=== PATIENT | female | born 1950 | race African-American/Black ===

== ENCOUNTER 2016-12-09 16:36 | Emergency (ER) | payer OTHER ==
[2016-12-09 16:54] VITALS: BP 139/88; PULSE 82; TEMP 98.1
--- NOTE | 2016-12-09 17:18 | PDOC ---
History of Present Illness - General Chief Complaint: Shortness of Breath Stated Complaint: ASTHMA/sob Time Seen by Provider: 12/09/16 17:12 History Source: Patient - History of Present Illness Initial Comments: 12/09/16 17:16 CC: 2 week h/o shortness of breath Patient is a 66 y.o. female with a PMH of Asthma who presents today c/o 2 week h /o shortness of breath both at rest and upon exertion; patient states she came to the ED today b/c she started experiencing pleuritic, stabbing chest pain. Patient notes she has been using a friend's Albuterol rescue inhaler daily and was previously using her son's Advair but has not been doing so for at least 1 month. Patient denies any nausea, vomiting, diaphoresis, abdominal pain but does note intermittent productive (greenish sputum) cough and sore throat for the last 3-4 days. Surgical: None Social: (-) nicotine, (-) alcohol, (-) marijuana/cocaine/heroin PMD: None NKDA Past History - Past Medical History Allergies/Adverse Reactions: Allergies Allergy/AdvReac Type Severity Reaction Status Date / Time No Known Allergies Allergy Verified 12/09/16 16:54 Home Medications: Ambulatory Orders Naproxen [Naprosyn -] 500 mg PO BID PRN #14 tablet 11/17/14 Asthma: Yes - Surgical History Cholecystectomy: Yes - Immunization History Immunization Up to Date: Yes - Suicide/Smoking/Psychosocial Hx Smoking History: Never smoked Information on smoking cessation initiated: No Hx Alcohol Use: No Drug/Substance Use Hx: No Substance Use Type: None Review of Systems - Review of Systems Constitutional: Yes: Chills. No: Fever Respiratory: Yes: Cough, SOB with Exertion, SOB at Rest Cardiac (ROS): Yes: Chest Pain ABD/GI: No: Constipated, Diarrhea, Nausea, Vomiting : No: Burning, Dysuria All Other Systems: Reviewed and Negative *Physical Exam - Vital Signs Last Vital Signs Temp Pulse Resp BP Pulse Ox 98.1 F 82 19 139/88 97 12/09/16 16:52 12/09/16 16:52 12/09/16 16:52 12/09/16 16:52 12/09/16 16:52 - Physical Exam General Appearance: Yes: Nourished, Thin HEENT: positive: Tonsillar Erythema, Nasal Congestion, Rhinorrhea Neck: positive: Trachea midline, Supple. 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 female with a PMH of Asthma who presents c/o dyspnea and associated Viral URI symptoms. PE is significant for B/L wheezing and rhonci on lung auscultation. Patient breathing comfortably (non-labored respirations, no accessory muscle use) with SpO2 96% on RA. Initial DDx includes Pneumonia vs. Asthma exacerbation vs. Influenza vs. Viral URI PLAN: 1. Duo-Nebs 2. CXR 3. 1 L IV NS 3. Influenza Nasal Swab 4. Referral to PCP and Pulmonology *DC/Admit/Observation/Transfer Diagnosis at time of Disposition: Dyspnea - Referrals Referrals: Horacio Can MD [Staff Physician] - Yoli Kilgore MD [Staff Physician] - - Patient Instructions Additional Instructions: Please call Dr. Kilgore to establish primary care. In addition please call Dr. Can to follow up for your treatment for your asthma and further evaluation. Please return to the Emergency Department should your symptoms worsen or you experience severe discomfort.
[2016-12-09] MEDS ORDERED: SODIUM CHLORIDE 0.9% 1000 ML INFUS.BAG IV ONE (17:49)
[2016-12-09] MEDS ORDERED: ALBUTEROL SO4 2.5/IPRATROPIUM 0.5 INH SOL 3 ML VIAL.NEB. NEB ONE ×4 (17:52→21:52)
--- NOTE | 2016-12-09 18:10 | PDOC ---
Attending Attestation - HPI HPI: 12/09/16 18:10 Pt is a 66 yo F with a PMHx of Asthma who presents to the ED with SOB for the past 2 weeks. Patient reports SOB at rest and on exertion that has progressively worsened. Patient reports chest pain that is exacerbated with deep inspiration. Patient does not have a doctor so she has been taking her son s Advair and Albuterol however denies any relief. Patient also reports productive cough (green) with sore throat. - Physicial Exam PE: 12/09/16 18:10 GENERAL: Awake, alert, and fully oriented, in no acute distress HEAD: No signs of trauma EYES: PERRLA, EOMI, sclera anicteric, conjunctiva clear ENT: Auricles normal inspection, hearing grossly normal, nares patent, oropharynx clear without exudates. Moist mucosa NECK: Normal ROM, supple, no lymphadenopathy, JVD, or masses LUNGS: Breath sounds equal. +wheezing diffusely. No crackles HEART: Regular rate and rhythm, normal S1 and S2, no murmurs, rubs or gallops ABDOMEN: Soft, nontender, normoactive bowel sounds. No guarding, no rebound. No masses EXTREMITIES: Normal range of motion, no edema. No clubbing or cyanosis. No cords, erythema, or tenderness NEUROLOGICAL: Cranial nerves II through XII grossly intact. Normal speech, normal gait SKIN: Warm, Dry, normal turgor, no rashes or lesions noted. - Medical Decision Making 12/09/16 18:11 Documentation prepared by Alem Song, acting as medical information specialist for Kaley Botello DO, MD/. <Alem Song - Last Filed: 12/09/16 18:10> - Resident Resident Name: MacJennifer - ED Attending Attestation I have performed the following: I have examined & evaluated the patient, The case was reviewed & discussed with the resident, I agree w/resident's findings & plan, Exceptions are as noted - Medical Decision Making 12/09/16 18:10 I, Dr. Kaley Botello DO, attest that this document has been prepared under my direction and personally reviewed by me in its entirety. I further attest, that it accurately reflects all work, treatment, procedures and medical decision -making performed by me. 12/09/16 18:33 a/p: 66yo female with SOB and chest tightness - using albuterol as oupt without relief -concern for PNA vs mucopurulent bronchitis w RAD vs viral RAD -labs -ekg -cxr -reassess -nebs <Kaley Botello - Last Filed: 12/09/16 18:36> Heart Score/ECG Review - ECG Intrepretation Comment:: 12/09/16 18:33 sinus at 74, R kaminski axis, nl interval, no acute st/t wave findings <Kaley Botello - Last Filed: 12/09/16 18:36>
[2016-12-09 18:25] LABS: BASOPHIL 1.1 % (0-2.0); EOSINOPHIL 13.4 % (0-4.5); MCH 29.4 pg (25.7-33.7); MCHC 33.2 g/dl (32.0-36.0); MEAN CELL VOLUME 88.6 fl (80-96); MEAN PLT VOLUME 9.5 fl (7.5-11.1); NEUTROPHILS 40.9 % (42.8-82.8); PLATELET COUNT 207 K/MM3 (134-434); RDW 13.5 % (11.6-15.6); WHITE BLOOD COUNT 5.2 K/mm3 (4.0-10.0)
[2016-12-09 18:53] LABS: ALBUMIN 4.1 g/dl (3.4-5.0); ANION GAP 6 (8-16); BILIRUBIN,TOTAL 0.5 mg/dL (0.2-1.0); CALCIUM 9.3 mg/dL (8.5-10.1); CO2 30 mmol/L (21-32); CREATININE 0.9 mg/dL (0.55-1.02); GLUCOSE,RANDOM 82 mg/dL (74-106); SGOT/AST 19 U/L (15-37); SGPT/ALT 21 U/L (12-78); TOT PROT 7.8 g/dl (6.4-8.2)
[2016-12-09 18:54] LABS: ALK PHOS 83 U/L (45-117)
[2016-12-09] MEDS ORDERED: methylPREDNISolone NA SUCC 125 MG/2 ML VIAL IVPB ONE (18:57)
[2016-12-09] MEDS ORDERED: AZITHROMYCIN IVPB 500 MG in DEXTROSE 5%-WATER - 250 ML IVPB ONE (19:08)
[2016-12-09] MEDS ORDERED: methylPREDNISolone NA SUCC 125 MG/2 ML VIAL ONE ×2 (19:44→19:45)
[2016-12-09] MEDS ORDERED: AZITHROMYCIN IVPB 250 ML IVPB ONE (19:44)
--- NOTE | 2016-12-09 20:09 | PDOC ---
*Physical Exam - Vital Signs Last Vital Signs Temp Pulse Resp BP Pulse Ox 98.1 F 82 19 139/88 97 12/09/16 16:52 12/09/16 16:52 12/09/16 16:52 12/09/16 16:52 12/09/16 16:52 - Physical Exam Comments: 12/09/16 20:19 GENERAL: Awake, alert, and fully oriented, in no acute distress HEAD: No signs of trauma, normocephalic, atraumatic EYES: PERRLA, EOMI, sclera anicteric, conjunctiva clear ENT: Auricles normal inspection, hearing grossly normal, nares patent, oropharynx clear without exudates. Moist mucosa NECK: Normal ROM, supple, no lymphadenopathy, JVD, or masses LUNGS: No distress, speaks full sentences, diffuse wheezes in all lung samuels HEART: Regular rate and rhythm, normal S1 and S2, no murmurs, rubs or gallops, peripheral pulses normal and equal bilaterally. NEUROLOGICAL: Cranial nerves II through XII grossly intact. Normal speech, normal gait, no focal sensorimotor deficits SKIN: Warm, Dry, normal turgor, no rashes or lesions noted. ED Treatment Course - LABORATORY CBC & Chemistry Diagram: 12/09/16 18:00 12/09/16 18:00 - ADDITIONAL ORDERS Additional order review: Laboratory Results 12/09/16 18:00 Sodium 138 Potassium 3.8 Chloride 102 Carbon Dioxide 30 Anion Gap 6 L BUN 9 Creatinine 0.9 Creat Clearance w eGFR > 60 Random Glucose 82 Calcium 9.3 Total Bilirubin 0.5 AST 19 ALT 21 Alkaline Phosphatase 83 Total Protein 7.8 Albumin 4.1 12/09/16 18:00 RBC 4.23 MCV 88.6 MCHC 33.2 RDW 13.5 MPV 9.5 Neutrophils % 40.9 L Lymphocytes % 37.3 Monocytes % 7.3 Eosinophils % 13.4 H Basophils % 1.1 - Medications Given in the ED: ED Medications Discontinued Medications Generic Name Dose Route Start Last Admin Trade Name Freq PRN Reason Stop Dose Admin Albuterol/Ipratropium 1 amp 12/09/16 17:52 12/09/16 18:27 Duoneb - NEB 12/09/16 17:53 1 amp ONCE ONE Administration Azithromycin 500 mg/ Dextrose 250 mls @ 250 mls/hr 12/09/16 19:08 12/09/16 19: 55 IVPB 12/09/16 20:07 250 mls/hr ONCE ONE Administration Methylprednisolone Sodium Succinate 125 mg 12/09/16 18:57 12/09/16 19:55 Solu-Medrol - IVPB 12/09/16 18:58 125 mg ONCE ONE Administration Sodium Chloride 1,000 ml 12/09/16 17:49 12/09/16 18:27 Normal Saline - IV 12/09/16 17:50 1,000 ml ONCE ONE Administration Medical Decision Making - Medical Decision Making 12/09/16 20:20 Patient 66F with history of asthma here today complaining of SOB. Vital signs stable. Patient appears well but is wheezing. CBC/CMP reassuring. Will treat with additional duoneb and mag. CXR pending. 12/09/16 20:54 CXR shows hyperinflation, no infiltrates. Will re-evaluate after mag. 12/09/16 21:34 Flu negative. Patient is improved. Will discharge with prescription for inhaler , steroid taper and z-pack. PCP referral set up for [facility]. Given return precautions. Discharged. *DC/Admit/Observation/Transfer Diagnosis at time of Disposition: Dyspnea - Discharge Dispostion Disposition: HOME Condition at time of disposition: Good Admit: No - Prescriptions Prescriptions: Methylprednisolone [Medrol Dose Pedro Pablo] 4 mg PO ASDIR #21 tablet Albuterol Sulfate Inhaler - [Ventolin Hfa Inhaler -] 1 - 2 inh PO QID #1 inhaler Azithromycin [Zithromax 250mg Tablets -] 250 mg PO UTDICT #6 tab - Referrals Referrals: Yoli Kilgore MD [Staff Physician] - Horacio Can MD [Staff Physician] - - Patient Instructions Printed Discharge Instructions: DI for Asthma -- Adult Additional Instructions: Please call Dr. Kilgore to establish primary care. In addition please call Dr. Can to follow up for your treatment for your asthma and further evaluation. Please return to the Emergency Department should your symptoms worsen or you experience severe discomfort. - Post Discharge Activity
[2016-12-09] MEDS ORDERED: MAGNESIUM SULF 50% (8.12 MEQ/2 ML-1 GM VIAL) IVPB ONE (20:16)
[2016-12-09] MEDS ORDERED: MAGNESIUM SULF 50% (8.12 MEQ/2 ML-1 GM VIAL) ONE (21:52)
[2016-12-09] MEDS ORDERED: ALBUTEROL SO4 2.5/IPRATROPIUM 0.5 INH SOL 3 ML VIAL.NEB. NEB SCH (22:00)
--- NOTE | 2016-12-16 12:02 | EKG ---
Test Reason : Blood Pressure : / mmHG Vent. Rate : 074 BPM Atrial Rate : 074 BPM P-R Int : 166 ms QRS Dur : 084 ms QT Int : 404 ms P-R-T Axes : 000 106 141 degrees QTc Int : 448 ms NORMAL SINUS RHYTHM RIGHTWARD AXIS BORDERLINE ECG NO PREVIOUS ECGS AVAILABLE Confirmed by NYDIA COHEN MD ([id number]) on 12/16/2016 12:01:41 PM Referred By: Confirmed By:NYDIA COHEN MD
== END 2016-12-09 22:21 | disposition home or self-care (01) ==
LOC: JER 16:36
PROC: 3E0337Z Introduction of Electrolytic and Water Balance Substance into Peripheral Vein, Percutaneous Approach (ICD-10-PCS; principal; 2016-12-09)
PROC: 3E0F7GC Introduction of Other Therapeutic Substance into Respiratory Tract, Via Natural or Artificial Opening (ICD-10-PCS; 2016-12-09)
PROC: 3E03329 Introduction of Other Anti-infective into Peripheral Vein, Percutaneous Approach (ICD-10-PCS; 2016-12-09)
PROC: 3E033GC Introduction of Other Therapeutic Substance into Peripheral Vein, Percutaneous Approach (ICD-10-PCS; 2016-12-09)
DX: R06.00 Dyspnea, unspecified (principal); J45.909 Unspecified asthma, uncomplicated
CPT/HCPCS: 36415; 71020-TC; 80053; 85025; 87804; 93005; 93010; 94640; 96365; 96375; 99283-25

== ENCOUNTER 2019-03-07 13:26 | Emergency (ER) | payer OTHER ==
[2019-03-07 13:33] VITALS: TEMP 97.9; BMI 20.7
--- NOTE | 2019-03-07 13:39 | PDOC ---
History of Present Illness - General Chief Complaint: Shortness of Breath Stated Complaint: ASTHMA / R.O PNEUMONIA Time Seen by Provider: 03/07/19 13:38 - History of Present Illness Initial Comments: HPI: 68yo F with PMH of asthma presenting with shortness of breath. Patient ROS: Constitutional: no fever, no chills HEENT: no throat pain, no dysphagia Cardiovascular: no chest pain, no palpitations Respiratory: no cough, no shortness of breath Gastrointestinal: no abdominal pain, no nausea, no vomiting, no diarrhea, no constipation Genitourinary: no dysuria, no hematuria Musculoskeletal: no myalgia, no arthralgia Skin: no rash, no itching Neurologic: no headache, no weakness PE: General: Awake, alert, and fully oriented, in no acute distress Head: No signs of trauma Eyes: EOMI, sclera anicteric ENT: Moist mucus membranes Neck: Normal ROM, supple Lungs: Lungs clear, Normal breath sounds Cardio: Regular rhythm, S1 and S2 present Abdomen: Soft, nontender. No guarding, no rebound, no masses Extremities: Normal range of motion, Distal pulses present SKIN: Warm, Dry, normal turgor Neurologic: Cranial nerves II through XII grossly intact. Normal speech ED Course/MDM: DDX including but not limited to DDX including but not limited to ACS, PE, PNA, anemia, metabolic derangement 03/07/19 13:39 EKG: rate 84, QTc 453, NSR feeling better after breathing treatments 03/07/19 16:44 03/07/19 18:58 03/07/19 19:00 Past History - Past Medical History Allergies/Adverse Reactions: Allergies Allergy/AdvReac Type Severity Reaction Status Date / Time No Known Allergies Allergy Verified 03/07/19 13:33 Home Medications: Ambulatory Orders Albuterol Sulfate Inhaler - [Ventolin Hfa Inhaler -] 1 - 2 inh PO QID #1 inhaler 12/09/16 Albuterol Sulfate Inhaler - [Ventolin Hfa Inhaler -] 1 - 2 inh PO Q4H #1 inhaler 03/07/19 Prednisone [Prednisone 50 MG TABLETS] 50 mg PO DAILY #4 tablet 03/07/19 Asthma: Yes COPD: No - Surgical History Cholecystectomy: Yes - Immunization History Immunization Up to Date: No - Psycho Social/Smoking Cessation Hx Smoking History: Never smoked Hx Alcohol Use: No Drug/Substance Use Hx: No Substance Use Type: None *Physical Exam - Vital Signs Last Vital Signs Temp Pulse Resp BP Pulse Ox 97.9 F 89 18 136/77 96 03/07/19 13:30 03/07/19 13:30 03/07/19 13:30 03/07/19 13:30 03/07/19 13:30 ED Treatment Course - LABORATORY CBC & Chemistry Diagram: 03/07/19 14:26 03/07/19 14:26 Discharge - Discharge Information Problems reviewed: Yes Clinical Impression/Diagnosis: Shortness of breath Condition: Stable Disposition: HOME - Additional Discharge Information Prescriptions: Albuterol Sulfate Inhaler - [Ventolin Hfa Inhaler -] 1 - 2 inh PO Q4H #1 inhaler Prednisone [Prednisone 50 MG TABLETS] 50 mg PO DAILY #4 tablet - Follow up/Referral Referrals: Yoli Kilgore MD [Primary Care Provider] - - Patient Discharge Instructions Patient Printed Discharge Instructions: DI for Asthma -- Adult Additional Instructions: You were seen in the emergency department for shortness of breath. We did blood work which did not indicate acute pathology. Your chest X-Ray did not show a pneumonia. You received steroids and breathing treatments which improved your symptoms. Follow-up with your primary care provider within 72 hours to discuss this ED visit and to further evaluate your symptoms. Call today or tomorrow morning and make an appointment. Your workup is not complete until you do so. We sent prescriptions to your pharmacy. Take as instructed. Continue taking home medications as prescribed. Call for emergency medical services or go to the emergency room right away if any of the following occurs: Difficulty breathing, unrelieved by medications Tightness in chest, unrelieved by medications If you think you have an emergency, call for medical help right away. - Post Discharge Activity
[2019-03-07] MEDS ORDERED: ALBUTEROL SO4 2.5/IPRATROPIUM 0.5 INH SOL 3 ML VIAL.NEB. NEB ONE ×3 (14:04→15:22)
[2019-03-07] MEDS ORDERED: methylPREDNISolone NA SUCC 125 MG/2 ML VIAL IVPUSH ONE (14:05)
[2019-03-07] MEDS ORDERED: predniSONE 20 MG TABLET (UD) ONE (14:10)
[2019-03-07] MEDS ORDERED: predniSONE 20 MG TABLET (UD) PO ONE (14:10)
--- NOTE | 2019-03-07 14:29 | PDOC ---
Documentation entered by Karly Grullon SCRIBE, acting as scribe for Jay Jay Lee MD. Jay Jay Lee MD: This documentation has been prepared by the Mitchel nieves Xhesika, SCRIBE, under my direction and personally reviewed by me in its entirety. I confirm that the documentation accurately reflects all work, treatment, procedures, and medical decision making performed by me. Attending Attestation - Resident Resident Name: LatoshaSusanTaya - ED Attending Attestation I have performed the following: I have examined & evaluated the patient, The case was reviewed & discussed with the resident, I agree w/resident's findings & plan, Exceptions are as noted - HPI HPI: 03/07/19 14:10 The patient is a 68 year old female with a PMH of asthma who presents to the ED for SOB and 1 month of productive cough with yellow/greenish sputum. Pt states her SOB is associated with chest and back tightness. Pt states she has a history of asthma, has been using her nebulizer and albuterol pump more frequently with mild to no relief of symptoms. Pt states her granddaughter had walking pneumonia recently. The patient denies headache and dizziness. Denies fever, chills, cough, nausea, vomiting, diarrhea and constipation. Denies dysuria, frequency, urgency and hematuria. Allergies:, NKDA Social Hx: Denies current smoking, drinking, or other substance usage - Physicial Exam PE: 03/07/19 14:11 Vitals: Triage Vital signs reviewed General Appearance: no acute distress, well nourished well developed, Chest Wall: Nontender Cardiac: Regular rate and rhythm, no murmurs, no rubs, no gallops, Lungs: +end expiratory wheezing. Abdomen: Soft, nondistended, normal bowel sounds, nontender to palpation Extremities: Full range of motion to all extremities, no cyanosis, clubbing, or edema Skin: Warm and dry, no rashes or lesions, no petechiae - Medical Decision Making 03/07/19 14:30 68 years old with past medical history significant for asthma presents to the ED with URI symptoms runny nose cough some sputum and wheezing not responding to home nebulizer treatments. On examination patient with end expiratory wheezing We will treat with steroids duo nebs chest x-ray labs observe and reassess 03/07/19 16:17 No fever no white count chest x-ray with no acute pathology history and examination consistent with asthma exacerbation secondary to viral URI Status post prednisone and duo nebs patient feels much better wheezing is improved We will discharge home with 4-day course of prednisone and refill of patient's Ventolin MDI Findings, the need for follow-up and strict return instructions discussed with patient. Discharge - Discharge Information Problems reviewed: Yes Clinical Impression/Diagnosis: Shortness of breath Condition: Stable Disposition: HOME - Additional Discharge Information Prescriptions: Prednisone [Prednisone 50 MG TABLETS] 50 mg PO DAILY #4 tablet - Follow up/Referral - Patient Discharge Instructions Patient Printed Discharge Instructions: DI for Asthma -- Adult Additional Instructions: You were seen in the emergency department for shortness of breath. We did blood work which did not indicate acute pathology. Your chest X-Ray did not show a pneumonia. You received steroids and breathing treatments which improved your symptoms. Follow-up with your primary care provider within 72 hours to discuss this ED visit and to further evaluate your symptoms. Call today or tomorrow morning and make an appointment. Your workup is not complete until you do so. We sent prescriptions to your pharmacy. Take as instructed. Continue taking home medications as prescribed. Call for emergency medical services or go to the emergency room right away if any of the following occurs: Difficulty breathing, unrelieved by medications Tightness in chest, unrelieved by medications If you think you have an emergency, call for medical help right away. - Post Discharge Activity Heart Score/ECG Review - ECG Impressions Comment:: 03/07/19 14:31 EKG performed at 1342 demonstrates normal sinus rhythm no ST elevations no T wave inversions Interpreted by me.
[2019-03-07 14:39] LABS: BASO % 1.4 % (0-2.0); EOS % 15.3 % (0-4.5); HEMATOCRIT 36.6 % (32.4-45.2); HEMOGLOBIN 12.2 GM/dL (10.7-15.3); LYMPH % 21.5 % (8-40); MCH 29.5 pg (25.7-33.7); MCHC 33.3 g/dl (32.0-36.0); MEAN CELL VOLUME 88.6 fl (80-96); MEAN PLT VOLUME 8.7 fl (7.5-11.1); MONO % 10.3 % (3.8-10.2); NEUT % 51.5 % (42.8-82.8); PLATELET COUNT 189 K/MM3 (134-434); RBC 4.13 M/mm3 (3.60-5.2); RDW 13.5 % (11.6-15.6); WHITE BLOOD COUNT 4.6 K/mm3 (4.0-10.0)
[2019-03-07 15:07] LABS: BILIRUBIN,TOTAL 0.2 mg/dL (0.2-1); BLOOD UREA NITROGEN 14.2 mg/dL (7-18); CALCIUM 9.1 mg/dL (8.5-10.1); CREATININE 0.9 mg/dL (0.55-1.3); POTASSIUM 3.9 mmol/L (3.5-5.1); TOT PROT 7.4 g/dl (6.4-8.2)
[2019-03-07] MEDS ORDERED: IBUPROFEN 600 MG TABLET (FP) PO ONE ×2 (15:22→15:47)
[2019-03-07 16:49] VITALS: BP 138/87; PULSE 84
--- NOTE | 2019-03-08 11:52 | EKG ---
Test Reason : Blood Pressure : / mmHG Vent. Rate : 084 BPM Atrial Rate : 084 BPM P-R Int : 174 ms QRS Dur : 086 ms QT Int : 384 ms P-R-T Axes : -03 073 007 degrees QTc Int : 453 ms NORMAL SINUS RHYTHM NONSPECIFIC ST AND T WAVE ABNORMALITY ABNORMAL ECG WHEN COMPARED WITH ECG OF 09-DEC-2016 17:08, QRS AXIS SHIFTED LEFT T WAVE INVERSION NOW EVIDENT IN ANTERIOR LEADS T WAVE INVERSION NO LONGER EVIDENT IN LATERAL LEADS Confirmed by NYDIA COHEN MD ([id number]) on 03/08/2019 11:51:37 AM Referred By: Confirmed By:NYDIA COHEN MD
== END 2019-03-07 16:49 | disposition home or self-care (01) ==
LOC: JER 13:26
PROC: 3E0F7GC Introduction of Other Therapeutic Substance into Respiratory Tract, Via Natural or Artificial Opening (ICD-10-PCS; principal; 2019-03-07)
DX: R06.02 Shortness of breath (principal); J45.909 Unspecified asthma, uncomplicated
CPT/HCPCS: 36415; 71046-TC-FY; 80053; 84484; 85025; 93005; 93010; 99283-25

== ENCOUNTER 2019-09-29 13:32 | Emergency (ER) | payer OTHER ==
--- NOTE | 2019-09-29 13:45 | PDOC ---
Rapid Medical Evaluation Time Seen by Provider: 09/29/19 13:38 Medical Evaluation: Allergies Allergy/AdvReac Type Severity Reaction Status Date / Time No Known Allergies Allergy Verified 03/07/19 13:33 09/29/19 13:42 I performed a brief in-person evaluation of this patient. Pt is a 68 y/o female who dropped a planter on her L foot/ankle a few days ago and now has worsening swelling. She admits to the swelling going up her leg now. She denies significant pain with walking. Pertinent physical exam findings: L ankle swelling with medial tenderness, DP pulse palpable, sensation intact distally I have ordered the following: L foot/ankle xray Patient to proceed to ED for further evaluation. Discharge Disposition - Diagnosis Left ankle injury - Referrals - Patient Instructions - Post Discharge Activity
[2019-09-29 13:47] VITALS: BP 127/63; PULSE 82; TEMP 98.2; BMI 18.8
--- NOTE | 2019-09-29 14:20 | PDOC ---
History of Present Illness - General Chief Complaint: Injury Stated Complaint: LT ANKLE INJURY Time Seen by Provider: 09/29/19 13:38 History Source: Patient Exam Limitations: No Limitations - History of Present Illness Initial Comments: 09/29/19 14:16 5-year-old female presents to ED with injury to her left ankle and foot. Patient states was moving a planter when it slipped landing on the medial aspect of her foot and ankle. Patient denies previous injury to affected area but states recently was diagnosed with COVID and shingles which have both resolved. Occurred: reports: other (5 days ago) Severity: reports: mild Pain Location: reports: lower extremity Method of Injury: Yes: direct blow Modifying Factors: improves with: None Loss of Consciousness: no loss of consciousness Associated Symptoms (Fall): other Past History - Travel History Traveled outside of the country in the last 30 days: No - Medical History Allergies/Adverse Reactions: Allergies Allergy/AdvReac Type Severity Reaction Status Date / Time No Known Allergies Allergy Verified 09/29/19 13:44 Home Medications: Ambulatory Orders Albuterol Sulfate Inhaler - [Ventolin Hfa Inhaler -] 1 - 2 inh PO QID #1 inhaler 12/09/16 Albuterol Sulfate Inhaler - [Ventolin Hfa Inhaler -] 1 - 2 inh PO Q4H #1 inhaler 03/07/19 Prednisone [Prednisone 50 MG TABLETS] 50 mg PO DAILY #4 tablet 03/07/19 Asthma: Yes COPD: No Other medical history: shingles, covid 19 08/2019, pneumomia - Surgical History Cholecystectomy: Yes - Immunization History Immunization Up to Date: No - Psycho-Social/Smoking History Smoking History: Never smoked - Substance Abuse Hx (Audit-C & DAST Scrn) How often the patient has a drink containing alcohol: Never Score: In Men: 4 or > Positive; In Women: 3 or > Positive: 0 Screen Result (Pos requires Nsg. Audit-10AR): Negative In the last yr the pt used illegal drug/Rx for NonMed reason: No Score: Yes response is considered Positive: 0 Screen Result (Positive result requires Nsg. DAST-10): Negative Review of Systems - Review of Systems Able to Perform ROS?: No Is the patient limited Italian proficient: No Constitutional: No: Symptoms Reported HEENTM: No: Symptoms Reported Respiratory: No: Symptoms reported Cardiac (ROS): No: Symptoms Reported ABD/GI: No: Symptoms Reported : No: Symptoms Reported Musculoskeletal: Yes: Symptoms Reported, Joint Pain Integumentary: Yes: Bruising, Other Neurological: No: Symptoms reported Hematologic/Lymphatic: No: Symptoms Reported *Physical Exam - Vital Signs Last Vital Signs Temp Pulse Resp BP Pulse Ox 98.2 F 82 16 127/63 96 09/29/19 13:44 09/29/19 13:44 09/29/19 13:44 09/29/19 13:44 09/29/19 13:44 - Physical Exam General Appearance: Yes: Nourished, Appropriately Dressed. No: Apparent Distress Vascular Pulses: Doralis-Pedis (L): 1+ Extremity: positive: Normal Capillary Refill, Normal Range of Motion, Tender (Over fifth metatarsal and medial aspect of left malleolus). negative: Normal Inspection Integumentary: positive: Bruising (Generally over left malleolus) Neurologic: positive: Motor Strength 5/5 (Ambulatory. Full range of motion 5 out of 5 of the left ankle ) Medical Decision Making - Medical Decision Making 09/29/19 14:21 Chief complaint: Left foot and ankle injury sustained on Tuesday after ifting a heavy item that fell on her foot and ankle. Exam: Patient with diffuse edema and ecchymosis to the medial aspect of left malleolus and fifth metatarsal. No crepitus no deformity no decreased range of motion full-strength noted Plan: X-ray ordered from [facility] which I have reviewed and found no acute fracture or dislocation. Biju wrap ordered referral to orthopedist if symptoms continue for 7 days or more Discharge - Discharge Information Problems reviewed: Yes Clinical Impression/Diagnosis: Left ankle injury Condition: Good Disposition: HOME - Follow up/Referral Referrals: Steve Crook MD [Staff Physician] - - Patient Discharge Instructions Patient Printed Discharge Instructions: DI for Ankle Sprain, DI for Contusion Additional Instructions: Please use Biju wrap during the day but remove at night to allow some movement. May take Motrin for discomfort Elevate the extremity and if symptoms continue and do not improve over the next week please consider follow-up with orthopedist - Post Discharge Activity
== END 2019-09-29 14:26 | disposition home or self-care (01) ==
LOC: JERFT 13:32
DX: S99.912A Unspecified injury of left ankle, initial encounter (principal)
CPT/HCPCS: 73610-TC-LT-FY; 73630-TC-LT; 99283-25

== ENCOUNTER 2020-08-27 23:56 | Observation (INO) | payer OTHER ==
[2020-08-28] MEDS ORDERED: ACETAMINOPHEN 1000 MG/100 ML VIAL (NON FORMULARY) IVPB ONE (01:16)
[2020-08-28] MEDS ORDERED: methylPREDNISolone NA SUCC 125 MG/2 ML VIAL IVPUSH ONE (01:16)
[2020-08-28] MEDS ORDERED: FAMOTIDINE 20 MG/50 ML IVPB 20 MG/50 ML MG IVPB ONE ×2 (01:16→01:38)
[2020-08-28 01:36] LABS: BASO % 0.8 % (0-2.0); EOS % 5.6 % (0-4.5); HEMOGLOBIN 11.7 GM/dL (10.7-15.3); LYMPH % 30.8 % (8-40); MCH 28.9 pg (25.7-33.7); MCHC 33.4 g/dl (32.0-36.0); MEAN CELL VOLUME 86.6 fl (80-96); MEAN PLT VOLUME 8.8 fl (7.5-11.1); NEUT % 54.8 % (42.8-82.8); PLATELET COUNT 197 10^3/uL (134-434); RBC 4.04 M/mm3 (3.60-5.2); RDW 13.9 % (11.6-15.6); WHITE BLOOD COUNT 7.7 K/mm3 (4.0-10.0)
[2020-08-28] MEDS ORDERED: methylPREDNISolone NA SUCC 125 MG/2 ML VIAL ONE (01:37)
[2020-08-28 01:49] VITALS: BMI 25.5
[2020-08-28 01:55] LABS: CHLORIDE 103 mmol/L (98-107); SODIUM 139 mmol/L (136-145)
[2020-08-28 01:57] LABS: ALBUMIN 4.2 g/dl (3.4-5.0); ANION GAP 6 MMOL/L (8-16); BLOOD UREA NITROGEN 18.4 mg/dL (7-18); CALCIUM 9.2 mg/dL (8.5-10.1); CO2 29 mmol/L (21-32)
[2020-08-28] MEDS ORDERED: ACETAMINOPHEN INJECTION 100 ML IVPB ONE (01:59)
[2020-08-28 02:00] LABS: CREATININE 1.1 mg/dL (0.55-1.3); SGOT/AST 26 U/L (15-37); SGPT/ALT 22 U/L (13-61)
[2020-08-28 02:02] LABS: BILIRUBIN,TOTAL 0.8 mg/dL (0.2-1); TOT PROT 7.6 g/dl (6.4-8.2)
[2020-08-28 02:03] LABS: ALK PHOS 84 U/L (45-117)
[2020-08-28] MEDS ORDERED: ALBUTEROL SO4 HFA INHALER IH PRN (02:40)
[2020-08-28 02:56] LABS: GLUCOSE,RANDOM 113 mg/dL (74-106)
[2020-08-28 06:00] LABS: PLATELET ESTIMATE NORMAL
[2020-08-28] MEDS ORDERED: ALBUTEROL SO4 2.5/IPRATROPIUM 0.5 INH SOL 3 ML VIAL.NEB. NEB PRN (06:03)
[2020-08-28] MEDS ORDERED: SODIUM CHLORIDE 1,000 ML IV SCH (06:15)
[2020-08-28] MEDS ORDERED: methylPREDNISolone NA SUCC 40 MG/1 ML VIAL ONE (08:51)
[2020-08-28 09:53] LABS: CHOLESTEROL 268 mg/dL (50-200); LDL CHOLESTEROL (ONLY SJRH) 132 mg/dL (5-100); TRIGLYCERIDES 39 mg/dL (0-150)
[2020-08-28 09:55] LABS: HDL CHOLESTEROL 107 mg/dL (40-60)
[2020-08-28] MEDS ORDERED: methylPREDNISolone NA SUCC 40 MG/1 ML VIAL IVPUSH SCH (10:00)
[2020-08-28 15:26] VITALS: BP 137/64; PULSE 76; TEMP 98
[2020-08-28] MEDS ORDERED: MONTELUKAST NA 10 MG TABLET PO SCH (22:00)
[2020-08-28] MEDS ORDERED: ATORVASTATIN CA 20 MG TABLET (FP) PO SCH (22:00)
== END 2020-08-28 15:22 | disposition home or self-care (01) ==
LOC: JER 23:56 → JERBED 08-28 02:29
PROVIDERS: ADMIT Internal Medicine; ATTEND Family Medicine
PROC: 3E033NZ Introduction of Analgesics, Hypnotics, Sedatives into Peripheral Vein, Percutaneous Approach (ICD-10-PCS; principal; 2020-08-28)
PROC: 3E033GC Introduction of Other Therapeutic Substance into Peripheral Vein, Percutaneous Approach (ICD-10-PCS; 2020-08-28)
PROC: 3E0333Z Introduction of Anti-inflammatory into Peripheral Vein, Percutaneous Approach (ICD-10-PCS; 2020-08-28)
DX: R07.89 Other chest pain (principal); T78.49XA Other allergy, initial encounter; L50.9 Urticaria, unspecified; Y84.8 Other medical procedures as the cause of abnormal reaction of the patient, or of later complication, without mention of misadventure at the time of the procedure; Y92.9 Unspecified place or not applicable; J30.2 Other seasonal allergic rhinitis; I24.9 Acute ischemic heart disease, unspecified; Z98.84 Bariatric surgery status; J45.901 Unspecified asthma with (acute) exacerbation; Z20.822 Contact with and (suspected) exposure to COVID-19; R06.02 Shortness of breath
CPT/HCPCS: 36415; 71046-TC-FY; 80053; 80061; 82550; 82553; 83721; 84484; 85025; 93005; 93010; 96365; 96375; 96376; 99285-25; C9803; G0378; J0131; U0003; U0005

== ENCOUNTER 2020-09-08 14:19 | Emergency (ER) | payer OTHER ==
[2020-09-08 14:25] VITALS: BP 162/88; PULSE 94; TEMP 97; BMI 16.3
[2020-09-08 17:56] LABS: BASO % 0.6 % (0-2.0); EOS % 0.2 % (0-4.5); HEMATOCRIT 38.3 % (32.4-45.2); HEMOGLOBIN 12.5 GM/dL (10.7-15.3); LYMPH % 15.6 % (8-40); MCH 28.4 pg (25.7-33.7); MCHC 32.6 g/dl (32.0-36.0); MEAN CELL VOLUME 87.1 fl (80-96); MEAN PLT VOLUME 8.9 fl (7.5-11.1); NEUT % 79.6 % (42.8-82.8); PLATELET COUNT 225 10^3/uL (134-434); RDW 13.9 % (11.6-15.6); WHITE BLOOD COUNT 7.3 K/mm3 (4.0-10.0)
[2020-09-08 18:02] LABS: INR 1.09 (0.83-1.09); PROTHROMBIN TIME (PATIENT) 13.4 SEC (9.7-13.0)
[2020-09-08 18:05] LABS: ACTIVATED PTT 28.5 SECONDS (25.2-36.5)
[2020-09-08 18:10] LABS: CHLORIDE 103 mmol/L (98-107); SODIUM 139 mmol/L (136-145)
[2020-09-08 18:13] LABS: CALCIUM 9.6 mg/dL (8.5-10.1)
[2020-09-08 18:14] LABS: ALBUMIN 4.1 g/dl (3.4-5.0); ANION GAP 5 MMOL/L (8-16); BLOOD UREA NITROGEN 9.2 mg/dL (7-18); CO2 31 mmol/L (21-32); GLUCOSE,RANDOM 116 mg/dL (74-106)
[2020-09-08 18:17] LABS: CREATININE 0.8 mg/dL (0.55-1.3); SGOT/AST 21 U/L (15-37); SGPT/ALT 25 U/L (13-61)
[2020-09-08 18:19] LABS: BILIRUBIN,TOTAL 0.6 mg/dL (0.2-1); TOT PROT 7.6 g/dl (6.4-8.2)
[2020-09-08 18:20] LABS: ALK PHOS 85 U/L (45-117)
[2020-09-08 18:22] LABS: N-TERMINAL BNP 160.7 pg/ml (5-125)
== END 2020-09-08 19:41 | disposition home or self-care (01) ==
LOC: JER 14:19
DX: R60.0 Localized edema (principal)
CPT/HCPCS: 36415; 80053; 82550; 83880; 84484; 85025; 85610; 85730; 93970-TC; 99284-25

== ENCOUNTER 2020-09-13 13:45 | Emergency (ER) | payer OTHER ==
[2020-09-13 13:56] VITALS: TEMP 98; BMI 23.7
[2020-09-13] MEDS ORDERED: diphenhydrAMINE HCL 25 MG CAPSULE (FP) PO ONE ×2 (14:40→14:46)
[2020-09-13] MEDS ORDERED: predniSONE 20 MG TABLET (UD) PO ONE (14:41)
[2020-09-13] MEDS ORDERED: FAMOTIDINE 20 MG TABLET PO ONE (14:41)
[2020-09-13] MEDS ORDERED: predniSONE 20 MG TABLET (UD) ONE (14:46)
[2020-09-13] MEDS ORDERED: FAMOTIDINE 20 MG TABLET ONE (14:47)
[2020-09-13 16:03] VITALS: BP 120/65; PULSE 75
== END 2020-09-13 16:07 | disposition home or self-care (01) ==
LOC: JER 13:45
DX: T78.40XA Allergy, unspecified, initial encounter (principal)
CPT/HCPCS: 99283-25

== ENCOUNTER 2020-09-25 03:57 | Emergency (ER) | payer OTHER ==
[2020-09-25 04:23] VITALS: BP 146/81; PULSE 87; TEMP 98.1; BMI 23.7
[2020-09-25] MEDS ORDERED: predniSONE 20 MG TABLET (UD) PO ONE (05:38)
[2020-09-25] MEDS ORDERED: predniSONE 20 MG TABLET (UD) ONE (05:46)
[2020-09-25] MEDS ORDERED: diphenhydrAMINE HCL 25 MG CAPSULE (FP) PO ONE (06:04)
[2020-09-25] MEDS ORDERED: diphenhydrAMINE HCL 12.5 MG/5 ML UNIT-DOSE CUPS PO ONE (06:07)
== END 2020-09-25 06:05 | disposition home or self-care (01) ==
LOC: JER 03:57
DX: R21 Rash and other nonspecific skin eruption (principal)
CPT/HCPCS: 99283-25

== ENCOUNTER 2020-12-07 12:05 | Emergency (ER) | payer OTHER ==
[2020-12-07 12:27] VITALS: BP 148/76; PULSE 79; TEMP 98.4; BMI 24.4
== END 2020-12-07 15:03 | disposition home or self-care (01) ==
LOC: JER 12:05
DX: B34.9 Viral infection, unspecified (principal)
CPT/HCPCS: 71045-TC-FY; 87880; 99284-25; C9803; U0003; U0005

== ENCOUNTER 2021-07-27 16:06 | Emergency (ER) | payer OTHER ==
[2021-07-27 16:24] VITALS: BP 96/62; PULSE 62; TEMP 98.1; BMI 23.0
[2021-07-27] MEDS ORDERED: CYCLOBENZAPRINE HCL 10 MG TABLET (FP) PO ONE (17:23)
[2021-07-27] MEDS ORDERED: IBUPROFEN 600 MG TABLET (FP) PO ONE ×2 (17:23→18:28)
[2021-07-27] MEDS ORDERED: CYCLOBENZAPRINE HCL 10 MG TABLET (FP) ONE (18:28)
== END 2021-07-27 19:33 | disposition home or self-care (01) ==
LOC: JERFT 16:06 → JER 16:06 → JERFT 19:33
DX: M25.511 Pain in right shoulder (principal); M25.512 Pain in left shoulder
CPT/HCPCS: 73030-TC-LT-FY; 73030-TC-RT-FY; 99284-25

== ENCOUNTER 2022-05-17 11:27 | Emergency (ER) | payer OTHER ==
[2022-05-17 11:39] VITALS: BMI 23.0
[2022-05-17] MEDS ORDERED: ALBUTEROL SO4 2.5/IPRATROPIUM 0.5 INH SOL 3 ML VIAL.NEB. NEB ONE (11:42)
[2022-05-17] MEDS ORDERED: predniSONE 20 MG TABLET (UD) PO ONE (11:57)
[2022-05-17] MEDS ORDERED: diphenhydrAMINE HCL 25 MG CAPSULE (FP) PO ONE ×2 (11:58→12:28)
[2022-05-17] MEDS: ALBUTEROL SO4 2.5/IPRATROPIUM 0.5 INH SOL 3 ML VIAL.NEB. NEB SCH ×3 (12:20→15:11)
[2022-05-17] MEDS ORDERED: predniSONE 20 MG TABLET (UD) ONE (12:28)
[2022-05-17 14:13] LABS: HEMATOCRIT 36.4 % (32.4-45.2); MCH 29.4 pg (25.7-33.7); MCHC 32.9 g/dl (32.0-36.0); MEAN CELL VOLUME 89.4 fl (80-96); MEAN PLT VOLUME 9.5 fl (7.5-11.1); PLATELET COUNT 179 10^3/uL (134-434); RBC 4.07 M/mm3 (3.60-5.2); RDW 13.7 % (11.6-15.6); WHITE BLOOD COUNT 5.9 K/mm3 (4.0-10.0)
[2022-05-17 14:36] LABS: CALCIUM 9.3 mg/dL (8.5-10.1)
[2022-05-17 14:37] LABS: ALBUMIN 3.9 g/dl (3.4-5.0); BLOOD UREA NITROGEN 11.9 mg/dL (7-18)
[2022-05-17 14:40] LABS: CREATININE 0.8 mg/dL (0.55-1.3)
[2022-05-17 14:41] LABS: BILIRUBIN,TOTAL 0.5 mg/dL (0.2-1)
[2022-05-17 18:17] VITALS: BP 132/84; PULSE 88; RESP 16; TEMP 98
== END 2022-05-17 18:19 | disposition home or self-care (01) ==
LOC: JER 11:27
PROC: 3E0F7GC Introduction of Other Therapeutic Substance into Respiratory Tract, Via Natural or Artificial Opening (ICD-10-PCS; principal; 2022-05-17)
DX: J45.909 Unspecified asthma, uncomplicated (principal); R21 Rash and other nonspecific skin eruption
CPT/HCPCS: 36415; 71045-TC-FY; 80053; 84484; 85027; 93005; 93010; 94640; 99285-25

== ENCOUNTER 2022-08-24 19:13 | Emergency (ER) | payer OTHER ==
[2022-08-24 19:18] VITALS: BP 148/83; PULSE 83; RESP 17; TEMP 97.6; BMI 20.9
== END 2022-08-24 21:53 | disposition home or self-care (01) ==
LOC: JERFT 19:13
DX: S93.402A Sprain of unspecified ligament of left ankle, initial encounter (principal); W01.0XXA Fall on same level from slipping, tripping and stumbling without subsequent striking against object, initial encounter
CPT/HCPCS: 73610-TC-LT-FY; 73630-TC-LT; 99283-25

== ENCOUNTER 2023-06-25 19:56 | Emergency (ER) | payer OTHER ==
[2023-06-25 20:12] VITALS: BP 141/66; PULSE 87; RESP 18; TEMP 98.3; BMI 20.9
[2023-06-25] MEDS ORDERED: DIPHTH,PERTUSS(ACELL),TET 0.5 ML DISP.SYRIN IM ONE (21:28)
[2023-06-25] MEDS: DIPHTH,PERTUSS(ACELL),TET 0.5 ML DISP.SYRIN IM ONE (21:31)
== END 2023-06-25 22:13 | disposition home or self-care (01) ==
LOC: JER 19:56
PROC: 0XQPXZZ Repair Left Index Finger, External Approach (ICD-10-PCS; principal; 2023-06-25)
PROC: 3E0234Z Introduction of Serum, Toxoid and Vaccine into Muscle, Percutaneous Approach (ICD-10-PCS; 2023-06-25)
DX: S61.211A Laceration without foreign body of left index finger without damage to nail, initial encounter (principal); W26.8XXA Contact with other sharp object(s), not elsewhere classified, initial encounter
CPT/HCPCS: 12001-25; 90471; 90715; 99284-25

== ENCOUNTER 2023-11-16 14:11 | Emergency (ER) | payer OTHER ==
[2023-11-16] MEDS ORDERED: DEXAMETHASONE SOD PHOSPHATE 10 MG/1 ML VIAL ONE (14:25)
[2023-11-16] MEDS ORDERED: ALBUTEROL SO4 2.5/IPRATROPIUM 0.5 INH SOL 3 ML VIAL.NEB. NEB ONE (14:25)
[2023-11-16 14:29] VITALS: PULSE 79; RESP 16; TEMP 98.3; BMI 23.7
[2023-11-16] MEDS: ALBUTEROL SO4 2.5/IPRATROPIUM 0.5 INH SOL 3 ML VIAL.NEB. NEB SCH (15:15)
[2023-11-16 15:39] LABS: BASO % 0.6 % (0-2.0); EOS % 1.5 % (0-4.5); HEMATOCRIT 35.3 % (32.4-45.2); HEMOGLOBIN 11.8 GM/dL (10.7-15.3); LYMPH % 8.7 % (8-40); MCH 29.9 pg (25.7-33.7); MCHC 33.3 g/dl (32.0-36.0); MEAN CELL VOLUME 89.9 fl (80-96); MEAN PLT VOLUME 8.8 fl (7.5-11.1); MONO % 2.8 % (3.8-10.2); NEUT % 86.4 % (42.8-82.8); PLATELET COUNT 179 10^3/uL (134-434); RBC 3.93 M/mm3 (3.60-5.2); RDW 13.5 % (11.6-15.6); WHITE BLOOD COUNT 8.4 K/mm3 (4.0-10.0)
[2023-11-16] MEDS: SODIUM CHLORIDE 1,000 ML IV STA (15:41)
[2023-11-16 15:55] VITALS: BP 111/66
[2023-11-16 15:58] LABS: POTASSIUM 4.2 mmol/L (3.5-5.1)
[2023-11-16 16:00] LABS: ALBUMIN 3.5 g/dl (3.4-5.0); BLOOD UREA NITROGEN 14.2 mg/dL (7-18); CALCIUM 8.7 mg/dL (8.5-10.1)
[2023-11-16 16:05] LABS: BILIRUBIN,TOTAL 0.4 mg/dL (0.2-1); TOT PROT 6.5 g/dl (6.4-8.2)
[2023-11-16 17:54] LABS: HIV INTERPRETATION NEGATIVE (NEGATIVE)
== END 2023-11-16 17:43 | disposition home or self-care (01) ==
LOC: JER 14:11
PROC: 3E0F7GC Introduction of Other Therapeutic Substance into Respiratory Tract, Via Natural or Artificial Opening (ICD-10-PCS; principal; 2023-11-16)
PROC: 3E0337Z Introduction of Electrolytic and Water Balance Substance into Peripheral Vein, Percutaneous Approach (ICD-10-PCS; 2023-11-16)
DX: R06.02 Shortness of breath (principal); J45.21 Mild intermittent asthma with (acute) exacerbation; R07.89 Other chest pain
CPT/HCPCS: 36415; 71046-TC-FY; 80053; 85025; 86803; 87389; 93005; 93010; 99285-25